=== PATIENT | female | born 2000 | race Caucasian/White ===

== ENCOUNTER 2022-03-10 20:54 | Emergency (ER) | payer OTHER, SELFPAY ==
[2022-03-10 21:06] VITALS: BP 125/69; PULSE 108; RESP 18; TEMP 36.1; O2SAT 99
[2022-03-10 21:22] LABS: Basophils Percent Auto 0.4 % (0.2-1.2); Eosinophils Absolute Auto 0.1 K/mm3 (0-0.3); Eosinophils Percent Auto 1.3 % (0-4.4); Hematocrit 35.3 % (37.0-47.0); Hemoglobin 11.7 g/dL (12.0-15.0); Immature Granulocyte Absolute 0.04 K/mm3 (0.00-0.031); Immature Granulocyte Percent A 0.4 % (0-0.5); Lymphocytes Absolute Auto 1.21 K/mm3 (0.9-3.2); Lymphocytes Percent Auto 13.3 % (18.3-44.2); Mean Corpuscular HGB Conc 33.1 g/dl (32-36); Mean Corpuscular Hemoglobin 27.2 pg (26-34); Mean Corpuscular Volume 82.1 fl (80-100); Mean Platelet Volume 11.7 fl (7.4-10.4); Monocytes Absolute Auto 0.6 K/mm3 (0.1-0.6); Monocytes Percent Auto 6.5 % (2.6-8.5); Neutrophils Absolute Auto 7.1 K/mm3 (1.3-6.7); Neutrophils Percent Auto 78.1 % (45.5-73.1); Platelet Count Result 166 k/mm3 (150-375); Red Cell Distribution Width 14.4 % (11.5-14.5); White Blood Count 9.1 K/mm3 (4.5-10.0)
[2022-03-10 21:32] LABS: Alanine Aminotransferase 15 U/L (6-35); Albumin Level 3.9 g/dL (3.7-5.6); Alkaline Phosphatase 59 U/L (45-116); Anion Gap 8 mmol/L (8-16); Aspartate Amino Transferase 24 U/L (14-36); Bilirubin,Total 0.2 mg/dL (0.2-1.3); Blood Urea Nitrogen 4 mg/dL (8-21); Calcium 8.6 mg/dL (8.9-10.7); Carbon Dioxide 19 mmol/L (22-30); Chloride 105 mmol/L (98-107); Estimated CRCL calculation 180 ml/min; Estimated Glomerular Filt Rate > 60; Glucose 99 mg/dL (65-110); Lipase 63 U/L (23-300); Potassium 3.5 mmol/L (3.4-5.0); Sodium 132 mmol/L (134-143)
[2022-03-10 22:53] LABS: Appearance Urine Clear (Clear); Bilirubin Urine Negative (Negative); Blood Urine Negative (Negative); Color Urine Yellow (Yellow); Glucose Urine UA Negative (Negative); Ketones Urine 1+ mg/dL (Negative); Leukocyte Esterase Ur Negative LEU/UL (Negative); Nitrate Urine Negative (Negative); Protein Urine Negative (Negative); Urobilinogen Urine 0.2 mg/dL (<2.0)
[2022-03-10 22:57] LABS: Add Urine Microscopic? YES; Bacteria Urine Trace /hpf; Mucus Urine Rare /lpf; RBC Urine 0-2 /hpf (0-2); Squamous Epithelial Cell Urine Moderate /hpf (Few); WBC Urine 0-3 /hpf
[2022-03-10 23:23] LABS: Influenza A QL RT-PCR Negative (Negative); Influenza B QL RT-PCR Negative (Negative); SARS-CoV-2 RNA PCR Negative
[2022-03-10] MEDS: SODIUM CHLORIDE 0.9% IV 1,000 ML 999 ML IV CONT (23:28)
--- NOTE | 2022-03-11 00:08 | ED.GENADULT ---
HPI - General Adult General Chief complaint: Nausea/Vomiting/Diarrhea Stated complaint: vomiting while 16 weeks Time Seen by Provider: 03/10/22 22:09 History of Present Illness HPI narrative: Patient is a 21-year-old female who presents ER with multiple issues. She has been having sinus congestion with cough and sore throat. Ongoing over the last couple days. No fevers or chills or sweats. No known sick contacts. She also has been having nausea and vomiting. She is [address] Barker. No vaginal bleeding or vaginal discharge. No urinary frequency urgency or dysuria. Related Data Allergies Allergy/AdvReac Type Severity Reaction Status Date / Time No Known Allergies Allergy Unknown Unverified 06/30/17 18:13 Review of Systems Review of Systems: All systems reviewed & are unremarkable except as noted in HPI and below Constitutional: Constitutional: Denies chills and Denies fever(s) ENT: Reports nasal congestion and Reports sore throat Cardiovascular: Cardiovascular: Denies chest pain and Denies rapid heart rate Respiratory: Respiratory: Reports cough and Denies dyspnea Gastrointestinal: Gastrointestinal: Denies abdominal pain, Reports nausea and Reports vomiting Genitourinary: Genitourinary: Denies abnormal vaginal bleeding, Denies hematuria, Denies nocturia and Denies flank pain PMFSH Past Medical History Medical History (Updated 03/11/22 @ 07:27 by Jb Carrero MD) Healthy female adult Surgical History Surgical History (Updated 03/11/22 @ 07:27 by Jb Carrero MD) No pertinent past surgical history Exam Narrative: GENERAL: Well-appearing, well-nourished, and in no acute distress. HEAD: Normocephalic, atraumatic. EYES: PERRL and EOMI. ENT: Mucous membranes moist. CHEST: Clear to auscultation. No respiratory distress. HEART: Regular rate and rhythm. Normal peripheral pulses. ABDOMEN: Soft, nontender, nondistended. EXTREMITIES: Normal range of motion. No edema. SKIN: Warm, dry, no rash. NEURO: Alert and oriented x3. PSYCH: Normal mood and affect. Course Course Emergency Course: Patient feels improved after fluids and antiemetics. Discharge home with supportive therapy. Vital Signs Vital signs: Vital Signs Temperature 97 F L 03/10/22 21:06 Pulse Rate 108 H 03/10/22 21:06 Respiratory Rate 18 03/10/22 21:06 Blood Pressure 125/69 03/10/22 21:06 Pulse Oximetry 99 03/10/22 21:06 Oxygen Delivery Room Air 03/10/22 21:06 Temperature 97 F L 03/10/22 21:06 Pulse Rate 76 03/11/22 01:07 Respiratory Rate 18 03/11/22 01:07 Blood Pressure 122/76 03/11/22 01:07 Pulse Oximetry 98 03/11/22 01:07 Oxygen Delivery Room Air 03/10/22 21:06 Medical Decision Making Vital Signs Vital Signs: Vital Signs Temperature 97 F L 03/10/22 21:06 Pulse Rate 108 H 03/10/22 21:06 Respiratory Rate 18 03/10/22 21:06 Blood Pressure 125/69 03/10/22 21:06 Pulse Oximetry 99 03/10/22 21:06 Oxygen Delivery Room Air 03/10/22 21:06 Temperature 97 F L 03/10/22 21:06 Pulse Rate 76 03/11/22 01:07 Respiratory Rate 18 03/11/22 01:07 Blood Pressure 122/76 03/11/22 01:07 Pulse Oximetry 98 03/11/22 01:07 Oxygen Delivery Room Air 03/10/22 21:06 Lab Data Result diagrams: 03/10/22 21:14 03/10/22 21:14 Labs: Lab Results 03/10/22 03/10/22 03/10/22 Range/Units 21:14 21:14 22:28 WBC 9.1 (4.5-10.0) K/mm3 RBC 4.30 (4.2-5.4) M/mm3 Hgb 11.7 L (12.0-15.0) g/dL Hct 35.3 L (37.0-47.0) % MCV 82.1 (80-100) fl MCH 27.2 (26-34) pg MCHC 33.1 (32-36) g/dl RDW 14.4 (11.5-14.5) % Plt Count 166 (150-375) k/mm3 MPV 11.7 H (7.4-10.4) fl Immature Gran % (Auto) 0.4 (0-0.5) % Neut % (Auto) 78.1 H (45.5-73.1) % Lymph % (Auto) 13.3 L (18.3-44.2) % [place] % (Auto) 6.5 (2.6-8.5) % Eos % (Auto) 1.3 (0-4.4) % Baso % (A
[2022-03-11 00:51] VITALS: BP 120/82; PULSE 72; RESP 18; O2SAT 98
[2022-03-11 01:07] VITALS: BP 122/76; PULSE 76; RESP 18; O2SAT 98
== END 2022-03-11 01:10 | disposition home or self-care (01) ==
PROVIDERS: Emergency Provider Emergency Medicine; PCP Obstetrics & Gynecology
DX: O98.512 Other viral diseases complicating pregnancy, second trimester (principal); B34.9 Viral infection, unspecified; O21.9 Vomiting of pregnancy, unspecified; Z3A.16 16 weeks gestation of pregnancy; Z20.822 Contact with and (suspected) exposure to COVID-19
CPT/HCPCS: 36415; 80053; 81001; 81025; 83690; 85025; 87502; 96360; 99283; C9803; J7030; U0003; U0005

== ENCOUNTER 2022-07-11 13:14 | Outpatient (CLI) | payer OTHER, SELFPAY ==
[2022-07-11 13:53] VITALS: BP 129/77; PULSE 91
[2022-07-11 14:01] VITALS: BP 127/76; PULSE 89
[2022-07-11 14:12] LABS: Appearance Urine Slightly Cloudy (Clear); Bilirubin Urine Negative (Negative); Blood Urine Negative (Negative); Color Urine Yellow (Yellow); Glucose Urine UA Negative (Negative); Ketones Urine Negative (Negative); Leukocyte Esterase Ur 3+ LEU/UL (NEGATIVE); Nitrate Urine Negative (Negative); Protein Urine Negative (Negative); Specific Grav Ur 1.015 (1.001-1.035); Urobilinogen Urine 0.2 mg/dL (<2.0); pH Urine 7.5 (5.0-9.0)
[2022-07-11 14:15] LABS: Basophils Absolute Auto 0.1 K/mm3 (0.0-0.1); Basophils Percent Auto 0.6 % (0.2-1.2); Eosinophils Absolute Auto 0.1 K/mm3 (0-0.3); Hematocrit 33.3 % (37.0-47.0); Hemoglobin 10.3 g/dL (12.0-15.0); Immature Granulocyte Percent A 2.6 % (0-0.5); Lymphocytes Absolute Auto 1.83 K/mm3 (0.9-3.2); Lymphocytes Percent Auto 15.9 % (18.3-44.2); Mean Corpuscular HGB Conc 30.9 g/dl (32-36); Mean Corpuscular Hemoglobin 24.8 pg (26-34); Mean Platelet Volume 11.5 fl (7.4-10.4); Monocytes Absolute Auto 0.7 K/mm3 (0.1-0.6); Monocytes Percent Auto 5.7 % (2.6-8.5); Neutrophils Absolute Auto 8.5 K/mm3 (1.3-6.7); Neutrophils Percent Auto 74.2 % (45.5-73.1); Nucleated Red Blood Cells Perc 0.3 % (0.0-0.2); Platelet Count Result 197 k/mm3 (150-375); Red Blood Count 4.16 M/mm3 (4.2-5.4); Red Cell Distribution Width 14.9 % (11.5-14.5); White Blood Count 11.5 K/mm3 (4.5-10.0)
[2022-07-11 14:16] VITALS: BP 129/86; PULSE 89
[2022-07-11 14:17] LABS: Bacteria Urine Trace /hpf; RBC Urine 0-2 /hpf (0-2); Squamous Epithelial Cell Urine Many /hpf (Few); WBC Urine 16-20 /hpf (0-3)
[2022-07-11 14:28] LABS: Creatinine Urine 55.1 mg/dL; Total Protein Urine Random 12 mg/dL; Ur Ttl Prot Creatinine Ratio 0.22 mg/mg (0-0.20)
[2022-07-11 14:31] VITALS: BP 129/87; PULSE 90
[2022-07-11 14:43] VITALS: BP 127/77; PULSE 91
[2022-07-11 15:04] LABS: Alanine Aminotransferase 15 U/L (6-35); Albumin Level 3.5 g/dL (3.7-5.6); Alkaline Phosphatase 190 U/L (45-116); Anion Gap 7 mmol/L (8-16); Aspartate Amino Transferase 27 U/L (14-36); Bilirubin,Total 0.5 mg/dL (0.2-1.3); Blood Urea Nitrogen 3 mg/dL (8-21); Carbon Dioxide 19 mmol/L (22-30); Chloride 107 mmol/L (98-107); Estimated Glomerular Filt Rate > 60; Glucose 77 mg/dL (65-110); Potassium 3.9 mmol/L (3.4-5.0); Sodium 133 mmol/L (134-143); Uric Acid 5.3 mg/dL (3.0-5.9)
[2022-07-11 15:07] LABS: Add Urine Microscopic? YES
== END 2022-07-11 15:17 | disposition home or self-care (01) ==
LOC: ANHOBOP 13:21 → ANHOBPP 13:22
PROVIDERS: PCP Obstetrics & Gynecology; Visit Provider Advanced Practice Midwife
DX: O13.9 Gestational [pregnancy-induced] hypertension without significant proteinuria, unspecified trimester (principal); Z3A.00 Weeks of gestation of pregnancy not specified
CPT/HCPCS: 36415; 59025; 80053; 81001; 82570; 84156; 84550; 85025; 87086; 87088; 99199

== ENCOUNTER 2022-08-10 13:26 | Outpatient (CLI) | payer OTHER, SELFPAY ==
[2022-08-10 14:00] VITALS: BP 141/85; PULSE 88
[2022-08-10 14:16] VITALS: BP 139/89; PULSE 93
[2022-08-10 14:30] VITALS: BP 145/94; PULSE 96
[2022-08-10 14:45] VITALS: BP 132/90; PULSE 89
[2022-08-10 15:09] LABS: Basophils Percent Auto 0.3 % (0.2-1.2); Eosinophils Absolute Auto 0.1 K/mm3 (0-0.3); Eosinophils Percent Auto 0.9 % (0-4.4); Hematocrit 30.4 % (37.0-47.0); Hemoglobin 9.1 g/dL (12.0-15.0); Immature Granulocyte Absolute 0.25 K/mm3 (0.00-0.031); Immature Granulocyte Percent A 2.1 % (0-0.5); Lymphocytes Absolute Auto 1.99 K/mm3 (0.9-3.2); Lymphocytes Percent Auto 17.1 % (18.3-44.2); Mean Corpuscular HGB Conc 29.9 g/dl (32-36); Mean Corpuscular Hemoglobin 24.1 pg (26-34); Mean Corpuscular Volume 80.4 fl (80-100); Mean Platelet Volume 11.4 fl (7.4-10.4); Monocytes Absolute Auto 0.6 K/mm3 (0.1-0.6); Neutrophils Absolute Auto 8.7 K/mm3 (1.3-6.7); Neutrophils Percent Auto 74.6 % (45.5-73.1); Nucleated Red Blood Cells Absolute Auto 0.1 K/mm3 (0.0-0.012); Nucleated Red Blood Cells Perc 0.8 % (0.0-0.2); Platelet Count Result 191 k/mm3 (150-375); Red Blood Count 3.78 M/mm3 (4.2-5.4); White Blood Count 11.7 K/mm3 (4.5-10.0)
[2022-08-10 15:15] VITALS: BP 143/92; PULSE 82
[2022-08-10 15:19] LABS: Creatinine Urine 170.6 mg/dL; Total Protein Urine Random 18 mg/dL; Ur Ttl Prot Creatinine Ratio 0.11 mg/mg (0-0.20)
[2022-08-10 15:22] LABS: Alanine Aminotransferase 22 U/L (6-35); Alkaline Phosphatase 200 U/L (45-116); Anion Gap 10 mmol/L (8-16); Aspartate Amino Transferase 30 U/L (14-36); Bilirubin,Total 0.3 mg/dL (0.2-1.3); Blood Urea Nitrogen 9 mg/dL (8-21); Calcium 8.6 mg/dL (8.9-10.7); Carbon Dioxide 20 mmol/L (22-30); Chloride 105 mmol/L (98-107); Estimated Glomerular Filt Rate > 60; Glucose 94 mg/dL (65-110); Potassium 4.3 mmol/L (3.4-5.0); Sodium 135 mmol/L (134-143); Uric Acid 6.4 mg/dL (3.0-5.9)
[2022-08-10 15:26] LABS: Appearance Urine Slightly Cloudy (Clear); Bilirubin Urine 1+ (Negative); Blood Urine Negative (Negative); Color Urine Yellow (Yellow); Glucose Urine UA Negative (Negative); Ketones Urine Trace mg/dL (Negative); Leukocyte Esterase Ur 1+ LEU/UL (NEGATIVE); Nitrate Urine Negative (Negative); Protein Urine 1+ mg/dL (Negative); Specific Grav Ur 1.025 (1.001-1.035); Urobilinogen Urine 0.2 mg/dL (<2.0)
[2022-08-10 15:30] VITALS: BP 138/91; PULSE 78
[2022-08-10 15:32] LABS: Bacteria Urine Trace /hpf; Mucus Urine Rare /lpf; Squamous Epithelial Cell Urine Many /hpf (Few)
[2022-08-10 15:35] LABS: Platelet Estimate Adequate (Adequate)
[2022-08-10 15:36] LABS: Hypochromasia 1+ (NORMAL)
[2022-08-10 15:37] LABS: Anisocytosis 3+ (NORMAL); Schistocytes None Seen (NORMAL)
--- NOTE | 2022-08-10 15:42 | PC.NURSE ---
1433- Spoke with Dr. Holloway, Orders for [facility] labs and watch tracing for longer. 1535- Spoke with Dr. Holloway, labs reviewed, NST reactive, no decels. Orders to discharge to home, patient called and made appt to be seen in office on or Tuesday.
[2022-08-10 15:43] LABS: Add Urine Microscopic? YES
== END 2022-08-10 15:55 | disposition home or self-care (01) ==
LOC: ANHOBOP 13:38 → ANHOBPP 13:40
PROVIDERS: Obstetrics & Gynecology; Visit Provider Obstetrics & Gynecology
DX: O26.851 Spotting complicating pregnancy, first trimester (principal); Z3A.00 Weeks of gestation of pregnancy not specified
CPT/HCPCS: 36415; 59025; 80053; 81001; 82570; 84112; 84156; 84550; 85025; 87086; 87088; 99199

== ENCOUNTER 2022-08-20 09:47 | Inpatient (IN) | payer OTHER, SELFPAY ==
[2022-08-20] VITALS (126 sets, daily range): BP systolic 106–147; BP diastolic 69–110; PULSE 73–176; TEMP 36.6–36.9; O2SAT 99–100; BMI 43.2
[2022-08-20 10:39] LABS: Basophils Absolute Auto 0.1 K/mm3 (0.0-0.1); Basophils Percent Auto 0.6 % (0.2-1.2); Eosinophils Absolute Auto 0.2 K/mm3 (0-0.3); Eosinophils Percent Auto 1.2 % (0-4.4); Hematocrit 31.8 % (37.0-47.0); Hemoglobin 9.6 g/dL (12.0-15.0); Immature Granulocyte Absolute 0.29 K/mm3 (0.00-0.031); Immature Granulocyte Percent A 2.2 % (0-0.5); Lymphocytes Absolute Auto 2.01 K/mm3 (0.9-3.2); Lymphocytes Percent Auto 15.4 % (18.3-44.2); Mean Corpuscular HGB Conc 30.2 g/dl (32-36); Mean Corpuscular Hemoglobin 23.7 pg (26-34); Mean Corpuscular Volume 78.5 fl (80-100); Mean Platelet Volume 12.1 fl (7.4-10.4); Monocytes Absolute Auto 0.7 K/mm3 (0.1-0.6); Monocytes Percent Auto 5.5 % (2.6-8.5); Neutrophils Absolute Auto 9.8 K/mm3 (1.3-6.7); Neutrophils Percent Auto 75.1 % (45.5-73.1); Nucleated Red Blood Cells Absolute Auto 0.1 K/mm3 (0.0-0.012); Nucleated Red Blood Cells Perc 0.6 % (0.0-0.2); Platelet Count Result 232 k/mm3 (150-375); Red Blood Count 4.05 M/mm3 (4.2-5.4); Red Cell Distribution Width 16.6 % (11.5-14.5)
[2022-08-20] MEDS: OXYTOCIN 30 UNITS/NS 500 ML 30 UNITS/500 ML BAG 6 UNITS IV CONT (10:40)
[2022-08-20] MEDS: LACTATED RINGERS 1,000 ML 125 ML IV CONT ×5 (10:40→22:59)
[2022-08-20 10:51] LABS: Alanine Aminotransferase 16 U/L (6-35); Albumin Level 3.5 g/dL (3.7-5.6); Alkaline Phosphatase 227 U/L (45-116); Anion Gap 11 mmol/L (8-16); Aspartate Amino Transferase 26 U/L (14-36); Bilirubin,Total 0.4 mg/dL (0.2-1.3); Blood Urea Nitrogen 14 mg/dL (8-21); Calcium 8.8 mg/dL (8.9-10.7); Carbon Dioxide 21 mmol/L (22-30); Chloride 102 mmol/L (98-107); Estimated Glomerular Filt Rate > 60; Glucose 83 mg/dL (65-110); Sodium 134 mmol/L (134-143)
--- NOTE | 2022-08-20 11:28 | LDADM ---
This patient, Tom Chahal, was admitted to Labor/Delivery/Recovery 102 on 08/20/22 at 09:47. Plans for labor, pain management and were discussed with patient. Patient/family oriented to hospital policies and general routines including ID bracelet, bed and alarms, visiting hours, pain management, procedures, bathroom and other care routines, personal items, smoking policy, room service/diet and guest tray routines, security routines, and visiting hours. Patient/Family are encouraged to report perceived risks to care and to ask questions if they do not understand what they are told or what they should do. See OBIX for further documentation.
[2022-08-20 17:06] LABS: Rapid Plasma Reagin Non-Reactive (NonReactive)
--- NOTE | 2022-08-20 19:03 | WPDANESEPP ---
Anes - Eval Pre Procedure Procedure: labor epidual Date/Time: 08/20/22 19:03 Surgeon: barry Preop Diagnosis: pain during labor Pre Op Diagnosis: Induction of Labor Patient Data Age: 21 Gender: F Height: 1.65 m Weight: 118 kg Last Vital Signs Temp 36.9 C 08/20/22 18:17 Pulse 83 08/20/22 19:00 BP 132/95 H 08/20/22 19:00 Pulse Ox 100 08/20/22 19:02 O2 Del Method Room Air 08/20/22 11:25 Allergies Allergy/AdvReac Type Severity Reaction Status Date / Time No Known Allergies Allergy Unknown Verified 08/20/22 11:40 Home Medications Medication Instructions Recorded Confirmed Type mv-mn no.97-folic 180 mcg-dha 25 1 tablet PO DAILY 08/20/22 08/20/22 History mg-herb no.293 25 mg chewable tablet (Alive Daily Support ) Laboratory Tests 08/20/22 08/20/22 08/20/22 10:13 10:13 10:13 WBC 13.0 K/mm3 H K/mm3 (4.5-10.0) RBC 4.05 M/mm3 L M/mm3 (4.2-5.4) Hgb 9.6 g/dL L g/dL (12.0-15.0) Hct 31.8 % L % (37.0-47.0) MCV 78.5 fl L fl (80-100) MCH 23.7 pg L pg (26-34) MCHC 30.2 g/dl L g/dl (32-36) RDW 16.6 % H % (11.5-14.5) Plt Count 232 k/mm3 k/mm3 (150-375) MPV 12.1 fl H fl (7.4-10.4) Immature Gran % (Auto) 2.2 % H % (0-0.5) Neut % (Auto) 75.1 % H % (45.5-73.1) Lymph % (Auto) 15.4 % L % (18.3-44.2) [place] % (Auto) 5.5 % % (2.6-8.5) Eos % (Auto) 1.2 % % (0-4.4) Baso % (Auto) 0.6 % % (0.2-1.2) Lymph # (Auto) 2.01 K/mm3 K/mm3 (0.9-3.2) [place] # (Auto) 0.7 K/mm3 H K/mm3 (0.1-0.6) Eos # (Auto) 0.2 K/mm3 K/mm3 (0-0.3) Baso # (Auto) 0.1 K/mm3 K/mm3 (0.0-0.1) Abs Immat Gran (auto) 0.29 K/mm3 H K/mm3 (0.00-0.031) Absolute Neuts (auto) 9.8 K/mm3 H K/mm3 (1.3-6.7) Absolute Nucleated RBC 0.1 K/mm3 H K/mm3 (0.0-0.012) Nucleated RBC % 0.6 % H % (0.0-0.2) Sodium Potassium Chloride Carbon Dioxide Anion Gap BUN Creatinine Estim Creat Clear Calc Estimated GFR Glucose Calcium Total Bilirubin AST ALT Alkaline Phosphatase Total Protein Albumin RPR Non-reactive (NonReactive) Blood Type A Positive Antibody Screen Negative 08/20/22 10:13 WBC RBC Hgb Hct MCV MCH MCHC RDW Plt Count MPV Immature Gran % (Auto) Neut % (Auto) Lymph % (Auto) [place] % (Auto) Eos % (Auto) Baso % (Auto) Lymph # (Auto) [place] # (Auto) Eos # (Auto) Baso # (Auto) Abs Immat Gran (auto) Absolute Neuts (auto) Absolute Nucleated RBC Nucleated RBC % Sodium 134 mmol/L mmol/L (134-143) Potassium 4.0 mmol/L mmol/L (3.4-5.0) Chloride 102 mmol/L mmol/L (98-107) Carbon Dioxide 21 mmol/L L mmol/L (22-30) Anion Gap 11 mmol/L mmol/L (8-16) BUN 14 mg/dL D mg/dL (8-21) Creatinine 0.80 mg/dL mg/dL (0.7-1.0) Estim Creat Clear Calc Not Reportable Estimated GFR > 60 (59 - ) Glucose 83 mg/dL mg/dL (65-110) Calcium 8.8 mg/dL L mg/dL (8.9-10.7) Total Bilirubin 0.4 mg/dL mg/dL (0.2-1.3) AST 26 U/L U/L (14-36) ALT 16 U/L U/L (6-35) Alkaline Phosphatase 227 U/L H U/L (45-116) Total Protein 7.0 g/dL g/dL (6.3-8.6) Albumin 3.5 g/dL L g/dL (3.7-5.6) RPR Blood Type Antibody Screen Patient hx anesthesia problems: none Family hx anesthesia problems: none Results Review: All pre-operative results and documents have been reviewed as part of the pre-operative ev
[2022-08-21] VITALS (261 sets, daily range): BP systolic 75–220; BP diastolic 35–190; PULSE 61–222; RESP 16–18; TEMP 36.6–37; O2SAT 80–100
--- NOTE | 2022-08-21 08:30 | PM.IMHP ---
H&P: HPI History of Present Illness Date/Time: 08/21/22 08:30 Chief Complaint: preeclampsia Narrative: This patient is 21-year-old 1 at 39 & 6/7 weeks gestation who presented for induction of labor for preeclampsia. Pitocin was started external monitoring was initiated. Around 2040 on 08/20/2022 after epidural a prolonged heart rate deceleration was observed. Resuscitative measures were initiated and a normal heart rate tracing was achieved. Internal monitors were placed at that time. Scalp electrode and intrauterine pressure catheter. She was 3-4 cm dilated at that time. expectant management was continued through the night. Again an epidural had to be replaced and with Anesthetic bolus a prolonged heart rate deceleration was observed. with observation the heart rate tracing became normal and reactive. the heart rate tracing is reactive and very reassuring at this time. She denies any nausea, vomiting, fever, chills. She denies chest pain or shortness of breath. Review of Systems Review of Systems: All systems reviewed & are unremarkable except as noted in HPI and below Constitutional: Constitutional: Denies chills, Denies fatigue, Denies fever(s) and Denies weakness Eyes: Eyes: Denies blurry vision, Denies change in vision, Denies loss of peripheral vision, Denies loss of vision, Denies other visual disturbances and Denies eye pain ENT: Denies vertigo, Denies dizziness, Denies hearing loss, Denies mouth pain, Denies nasal obstruction, Denies neck mass and Denies neck pain Cardiovascular: Cardiovascular: Denies chest pain, Denies diaphoresis, Denies syncope, Denies leg edema and Denies dyspnea Respiratory: Respiratory: Denies chest congestion, Denies cough, Denies hemoptysis, Denies dyspnea and Denies wheezing Gastrointestinal: Gastrointestinal: Denies abdominal pain, Denies constipation, Denies diarrhea, Denies nausea and Denies vomiting Genitourinary: Genitourinary: Denies hematuria, Denies change in libido, Denies nocturia, Denies genital lesions, Denies flank pain and Denies urinary urgency Musculoskeletal: Musculoskeletal: Denies abnormal gait, Denies back pain, Denies myalgias, Denies arthralgias, Denies joint swelling, Denies muscle weakness and Denies neck pain Integumentary/Breasts: Skin/Breast: Denies swelling, Denies breast pain, Denies breast mass, Denies dry skin, Denies nipple discharge, Denies unusual bruising and Denies jaundice Neurologic: Denies Neuro-related abnormal movements, Denies Abnormal speech present, Denies abnormal gait, Denies behavioral changes, Denies confusion, Denies vertigo, Denies dizziness, Denies syncope, Denies loss of vision, Denies memory loss, Denies convulsions and Denies weakness Psychiatric: Psychiatric: Denies abnormal sleep pattern, Denies behavioral changes, Denies change in libido, Denies confusion, Denies depression, Denies anhedonia and Denies memory loss Endocrine: Endocrine: Reports no additional endocrine complaints, Denies change in libido and Denies fatigue Hematologic/Lymphatic: Hematologic/Lymphatic: Reports no additional hematologic/lymphatic complaints Allergic/Immunologic: Allergic/Immunologic: Reports no additional allergic/immunologic complaints and Denies wheezing PMFSH Past Medical History Medical History (Updated 08/21/22 @ 08:40 by Cruzito Barker MD) Healthy female adult IUP (intrauterine ), incidental Obesity Surgical History Surgical History (Updated 03/11/22 @ 07:27 by Jb Carrero MD) No pertinent past surgical history Social History Social History Smoking status: Former smoker Tobacco type: cigarettes and e-cigarettes/vaping Second hand tobacco smoke exposure: Yes Smoking end date: 02/07/22 Substance use: never Lack of Transportation: No Lack of Food: Never True Current Housing: I Have Housing Concerned About Future Housing: No Difficulty Paying Gas/Electric Bills: No Difficult
[2022-08-21] MEDS: ONDANSETRON INJ 4 MG/2 ML VIAL IV PUSH (10:38)
[2022-08-21] MEDS: ePHEDrine sulfate INJ 50 MG/ML AMPUL IV PUSH (12:03)
[2022-08-21] MEDS: IBUPROFEN 600 MG TABLET PO (15:36)
[2022-08-21] MEDS: BENZOCAINE 20% AER SPR (*SP) 56 GM CAN 1 SPRAY TOPICAL (15:37)
[2022-08-21] MEDS: WITCH HAZEL 40 PADS 1 PAD TOPICAL (15:37)
[2022-08-21] MEDS: DOCUSATE SODIUM 100 MG CAPSULE PO (17:34)
[2022-08-21] MEDS: POLYSACCHARIDE IRON COMPLEX 150 MG CAPSULE PO (17:34)
[2022-08-22 00:15] VITALS: BP 122/82; PULSE 92; RESP 18; TEMP 36.7; O2SAT 100
[2022-08-22 04:00] VITALS: BP 128/82; PULSE 102; RESP 18; TEMP 37.2; O2SAT 99
[2022-08-22 05:45] LABS: Hematocrit 24.6 % (37.0-47.0); Hemoglobin 7.3 g/dL (12.0-15.0)
[2022-08-22] MEDS: POLYSACCHARIDE IRON COMPLEX 150 MG CAPSULE PO ×2 (08:39→16:47)
[2022-08-22] MEDS: DOCUSATE SODIUM 100 MG CAPSULE PO ×2 (08:39→16:47)
[2022-08-22 08:40] VITALS: BP 136/89; PULSE 105; RESP 16; TEMP 36.7; O2SAT 99
--- NOTE | 2022-08-22 10:08 | PM.OBPRVD ---
OB - Delivery Note Procedure Procedure: Events: Preeclampsia w/o severe features Intrapartal Events: Non-Reassuring Status Induction method: AROM and Per Pitocin Protocol Delivery monitor: Internal FHT and Internal Uterine Route of delivery: Laceration Description: Vaginal Delivery repair: vicryl Quantitative Blood Loss (ml): 400 Complications: none Baby Date of : 08/21/22 Time of : 13:22 Weeks of gestation at delivery: 39 gender: Male presentation: vertex Placenta delivery description: Spontaneous score one minute: 8 score five minutes: 9
--- NOTE | 2022-08-22 10:19 | PM.OBPNVD ---
OB - PN: Subj Subjective Date/time seen: 08/22/22 10:19 Patient comments: no complaints, pain well controlled, incisional pain, tolerating diet and flatus present OB - PN: Obj Data Labs CBC & Chem 7: 08/22/22 04:20 08/20/22 10:13 Labs: Laboratory Results - last 24 hr 08/22/22 04:20 Hgb 7.3 L Hct 24.6 L OB - PN A/P Plan day: 1 Plan: routine care Comments: No problems, routine care Time Spent With Patient Time: Total time spent is greater than 50% in coordination of care (as documented) at patient's floor/unit and/or counseling patient: Exam Const: General: comfortable, no acute distress and alert Resp: Effort & Inspection: normal respiratory effort Auscultation: no crackles, no rales and no rhonchi Cardio: Rate: regular rate Heart sounds: no click, no murmurs and no rubs GI: Inspection: non-distended GI Palp: No Tenderness to palpation present (GI) Auscultation: normal bowel sounds Other: Incision - CDI Extrem: General: normal to inspection, no pedal edema and no calf tenderness
[2022-08-22 12:30] VITALS: BP 131/83; PULSE 104; RESP 16; TEMP 37.4; O2SAT 100
--- NOTE | 2022-08-22 14:31 | WPDANLDPN2 ---
Anes-Prog Note L&D Date/Time: 08/22/22 14:31 Comfortable throughout: labor and delivery Neuraxial method: epidural Epidural/Spinal procedure site: clean & non-tender Neuro status: Neuro function grossly intact. Cardiovascular status: normal Respiratory status: normal Airway patency: baseline Mental status: baseline Post-Op hydration status: normal Vital Signs: Last Vital Signs Temp 99.3 F 08/22/22 12:30 Pulse 104 H 08/22/22 12:30 Resp 16 08/22/22 12:30 BP 131/83 08/22/22 12:30 Pulse Ox 100 08/22/22 12:30 O2 Del Method Room Air 08/22/22 12:30 Pain score (VAS): 0/10 I/O: Intake & Output 08/21/22 08/22/22 08/22/22 23:59 07:59 15:59 Intake Total 084 226 7455 Output Total 400 1650 Balance 240 325 -390 Post-procedural complaints: none Patient feedback: Patient satisfied with anesthetic care.
[2022-08-22] MEDS: IBUPROFEN 600 MG TABLET PO (16:49)
[2022-08-22 16:50] VITALS: BP 139/95
[2022-08-22 20:35] VITALS: BP 122/73; PULSE 115; RESP 16; TEMP 36.8; O2SAT 100
[2022-08-23 00:10] VITALS: BP 131/82; PULSE 96; RESP 16; TEMP 37.2; O2SAT 100
[2022-08-23 04:15] VITALS: BP 134/89; PULSE 99; RESP 16; TEMP 37.5; O2SAT 100
[2022-08-23 07:25] VITALS: BP 126/81; PULSE 95; RESP 16; TEMP 37.2; O2SAT 100
[2022-08-23 08:00] VITALS: PULSE 95; RESP 16; O2SAT 100
--- NOTE | 2022-08-23 08:09 | PM.OBPNVD ---
OB - PN: Subj Subjective Date/time seen: 08/23/22 08:09 Patient comments: no complaints, pain well controlled and tolerating diet OB - PN: Obj Data Labs CBC & Chem 7: 08/22/22 04:20 08/20/22 10:13 OB - PN A/P Plan day: 2 Plan: routine care and discharge home Time Spent With Patient Time: Total time spent is greater than 50% in coordination of care (as documented) at patient's floor/unit and/or counseling patient: Exam Const: General: comfortable and no acute distress Resp: Effort & Inspection: normal respiratory effort Auscultation: no rales, no rhonchi and no wheezes Cardio: Rate: regular rate Heart sounds: no click, no murmurs and no rubs GI: GI Palp: Yes Soft to palpation and No Tenderness to palpation present (GI) Auscultation: normal bowel sounds Extrem: General: normal to inspection, no pedal edema and no calf tenderness
--- NOTE | 2022-08-23 08:10 | PM.OBDSVD ---
DS: Admitting Diagnosis Discharge Date 08/23/22 Admitting Diagnosis term . preeclampsia OB - DS: Summary OB Procedures : None OB Procedures Intrapartum: Spontaneous Vag Delivery OB Procedures: : None Time Spent with Patient Time attestation: Total time spent providing and/or coordinating discharge services: Discharge Plan Discharge Discharging Clinician: Cruzito Barker Patient Disposition: Home, Self-Care Activity: pelvic rest Diet: regular Patient Instructions: Antibiotic Form Stand Alone Forms: General Discharge Information Follow-up/Referrals: Cruzito Barker MD [Physician] - Discharge Medications: Continued Alive Daily Support 180 mcg-25 mg- 25 mg Tablet,Chewable 1 tablet PO DAILY Date of admission: 08/20/22 09:47 Primary Care Provider: UNKNOWN,DOCTOR Admitting Provider: Jojo Holloway Attending physician on admission: Jojo Holloway Condition: Stable
--- NOTE | 2022-08-23 10:25 | PC.NURSE ---
Patient viewed the discharge video Mother & Baby Care, The First Two Weeks . Patient was given the opportunity and encouraged to ask questions. Patient verbalized understanding of information shared and has been given the mother/baby guide for home reference.
[2022-08-23] MEDS: POLYSACCHARIDE IRON COMPLEX 150 MG CAPSULE PO (10:26)
[2022-08-23] MEDS: DOCUSATE SODIUM 100 MG CAPSULE PO (10:26)
[2022-08-24 10:58] VITALS: BP 141/94; PULSE 97; RESP 20; TEMP 37.1; O2SAT 100
== END 2022-08-23 12:46 | disposition home or self-care (01) | DRG 807 ==
LOC: ANHOB2 08-23 10:41 → ANHLDR 08-24 11:57 → ANHOB2 08-24 11:57
PROVIDERS: Admitting Provider Obstetrics & Gynecology; Visit Provider Obstetrics & Gynecology
DX: O14.04 Mild to moderate pre-eclampsia, complicating childbirth (principal); Z37.0 Single live birth; O76 Abnormality in fetal heart rate and rhythm complicating labor and delivery; O69.81X0 Labor and delivery complicated by cord around neck, without compression, not applicable or unspecified; O70.1 Second degree perineal laceration during delivery; Z3A.39 39 weeks gestation of pregnancy
CPT/HCPCS: 36415; 80053; 85014; 85018; 85025; 86592; 86850; 86900; 86901; A9270; J2405; J2590; J2795; J7120

== ENCOUNTER 2022-12-21 10:04 | Emergency (ER) | payer OTHER, SELFPAY ==
[2022-12-21 10:17] VITALS: BP 125/76; PULSE 85; RESP 18; TEMP 36.2; O2SAT 100
--- NOTE | 2022-12-27 17:25 | ED.URI ---
HPI - URI/Sore Throat General Chief Complaint: Upper Respiratory Infection Stated Complaint: sorethroat Time Seen by Provider: 12/21/22 10:30 Source: patient Mode of arrival: ambulatory Limitations: no limitations History of Present Illness HPI Narrative: 22 yo F presents with c/o sore throat, headaches, bodyaches, chills, fatigue for 3 days. Temp as high at 102F. Denies N/V/D. All systems reviewed and negative except as noted above. Related Data Home Medications Medication Instructions Recorded Confirmed escitalopram oxalate 20 mg tablet 20 mg PO DAILY 12/21/22 12/21/22 Allergies Allergy/AdvReac Type Severity Reaction Status Date / Time No Known Allergies Allergy Unknown Verified 12/21/22 10:08 Review of Systems Review of Systems: CONSTITUTIONAL: Reports fever, chills, or sweats. EYES: Denies visual changes, redness, or discharge. ENT: Denies rhinorrhea, congestion. Reports sore throat. Denies otalgia. CARDIOVASCULAR: Denies chest pain, palpitations, or edema. RESPIRATORY: Denies cough or dyspnea. GASTROINTESTINAL: Denies abdominal pain, nausea, vomiting, or diarrhea. GENITOURINARY: Denies dysuria or hematuria. SKIN: Denies rash or itching. MUSCULOSKELETAL: Denies back pain, joint pain, or myalgia. NEUROLOGIC: Denies headache, numbness, or weakness. PSYCHIATRIC: Denies anxiety or depression. All other systems reviewed are negative, except as documented in HPI. [facility] Past Medical History Medical History (Updated 12/22/22 @ 00:01 by James Rondon) Healthy female adult IUP (intrauterine ), incidental Obesity Surgical History Surgical History (Updated 03/11/22 @ 07:27 by Jb Carrero MD) No pertinent past surgical history Social History Social History Smoking status: Former smoker Tobacco type: cigarettes and e-cigarettes/vaping Second hand tobacco smoke exposure: Yes Smoking end date: 02/07/22 Substance use: never Lack of Transportation: No Lack of Food: Never True Current Housing: I Have Housing Concerned About Future Housing: No Difficulty Paying Gas/Electric Bills: No Difficulty Paying for Meds: No Currently Unemployed: No Education: High School Diploma/GED Difficulty w/ Childcare or Family Care: No Spiritual care concerns: No Comments At time of signature, agree with nursing past medical, surgical, social and family history. There is no relevant family history pertinent to the presenting complaint. Exam Narrative: GENERAL: This is a well-nourished, well-developed patient, ill-appearing but no distress. HEAD: normocephalic, atraumatic. EYES: PERRL. Sclera clear/white. Vision is grossly intact. EARS: External ears normal, auditory canals clear and without drainage, TMs normal without perforation. Hearing grossly intact. NOSE: External nose normal with no obvious nasal discharge, nares without redness, no rhinorrhea. THROAT: Mucous membranes moist, erythematous, swollen. No exudates. NECK: Neck supple, non-tender without lymphadenopathy, masses or thyromegaly. CARDIOVASCULAR: Regular rate and rhythm without murmurs, gallops, or rubs. RESPIRATORY: Clear to auscultation. Breath sounds equal bilaterally. No wheezes, rales, or rhonchi. SKIN: warm, Dry, intact with no suspicious lesions or rash, good texture and turgor. NEURO: awake, alert, and oriented to person, place and time. There were no obvious focal neurologic abnormalities. EXTREMITIES: No joint tenderness, effusion, or edema noted. Course Course Level of Care: Express Care Visit Vital Signs Vital signs: Vital Signs Temperature 36.2 C L 12/21/22 10:17 Pulse Rate 85 12/21/22 10:17 Respiratory Rate 18 12/21/22 10:17 Blood Pressure 125/76 12/21/22 10:17 Pulse Oximetry 100 12/21/22 10:17 Oxygen Delivery Room Air 12/21/22 10:17 Temperature 36.2 C L 12/21/22 10:17 Pulse Rate 85 12/21/22 10:17 Respiratory Rate 18 12/21/22 10:17 Blood Pressure 12
== END 2022-12-21 10:40 | disposition home or self-care (01) ==
PROVIDERS: Emergency Provider Nurse Practitioner Family
DX: J02.0 Streptococcal pharyngitis (principal); E66.9 Obesity, unspecified; Z68.34 Body mass index [BMI] 34.0-34.9, adult
CPT/HCPCS: 87880; 99213; G0463

== ENCOUNTER 2024-03-03 09:13 | Emergency (ER) | payer OTHER, SELFPAY ==
[2024-03-03 09:21] VITALS: BP 131/81; PULSE 107; RESP 18; TEMP 37; O2SAT 99
[2024-03-03 09:23] VITALS: BP 131/81; PULSE 107; RESP 18; TEMP 37; O2SAT 99
--- NOTE | 2024-03-03 09:34 | ED.URI ---
HPI - URI/Sore Throat General Chief Complaint: Upper Respiratory Infection Stated Complaint: Sore Throat, Chills, Fever Time Seen by Provider: 03/03/24 09:28 Source: patient and RN notes reviewed Mode of arrival: ambulatory Limitations: no limitations History of Present Illness HPI Narrative: Patient presents today with a 2 day history of sore throat, chills, subjective fever. Denies congestion, cough, rhinorrhea. Currently rates her pain 8/10 has been taking Tylenol with mild relief. Sister with strep throat a few weeks ago. Related Data Home Medications Medication Instructions Recorded Confirmed Unknown Control Implant 03/03/24 Allergies Allergy/AdvReac Type Severity Reaction Status Date / Time No Known Allergies Allergy Unknown Verified 03/03/24 09:22 Review of Systems Review of Systems: CONSTITUTIONAL: Denies body aches, or sweats.+ subjective fever, chills EYES: Denies visual changes, redness, or discharge. ENT: Denies rhinorrhea, congestion, or otalgia.+ sore throat CARDIOVASCULAR: Denies chest pain, palpitations, or edema. RESPIRATORY: Denies cough or dyspnea. GASTROINTESTINAL: Denies abdominal pain, nausea, vomiting, or diarrhea. GENITOURINARY: Denies dysuria or hematuria. SKIN: Denies rash, itching, or wounds. MUSCULOSKELETAL: Denies back pain, joint pain, or myalgia. NEUROLOGIC: Denies headache, numbness, tingling, or weakness. PSYCH: Denies depression or anxiety. [facility] Past Medical History Medical History Healthy female adult IUP (intrauterine ), incidental Obesity Surgical History Surgical History No pertinent past surgical history Social History Social History Smoking status: Former smoker Tobacco type: cigarettes and e-cigarettes/vaping Second hand tobacco smoke exposure: Yes Smoking end date: 02/07/22 Substance use: never Lack of Transportation: No Lack of Food: Never True Current Housing: I Have Housing Concerned About Future Housing: No Difficulty Paying Gas/Electric Bills: No Difficulty Paying for Meds: No Currently Unemployed: No Education: High School Diploma/GED Difficulty w/ Childcare or Family Care: No Spiritual care concerns: No Comments At time of signature, I have reviewed and agree with nursing past medical, surgical, social and family history unless otherwise noted. Please see nursing chart for further information. There is no relevant family history pertinent to the presenting complaint Exam Narrative: GENERAL: Well-appearing, well-nourished, and in no acute distress. HEAD: Normocephalic, atraumatic. EYES: EOMI. No redness or drainage. Conjunctivae normal. ENT: Mucous membranes pink and moist. Nares clear. No rhinorrhea. TMs normal bilaterally. Throat erythematous. Tonsils 3+ exudate. Uvula midline. NECK: Normal AROM. Supple. No lymphadenopathy. CHEST: No respiratory distress. Clear to auscultation. HEART: Regular rate and rhythm. No murmur appreciated. EXTREMITIES: Normal range of motion. No edema. SKIN: Warm, dry, no rash. Capillary refill normal. Normal skin turgor. NEURO: No focal deficits. Alert and oriented x3. Gait steady. PSYCH: Normal affect. No signs of depression or anxiety. Course Course Level of Care: Express Care Visit Vital Signs Vital signs: Vital Signs Temperature 98.6 F 03/03/24 09:21 Pulse Rate 107 H 03/03/24 09:21 Respiratory Rate 18 03/03/24 09:21 Blood Pressure 131/81 03/03/24 09:21 Pulse Oximetry 99 03/03/24 09:21 Oxygen Delivery Room Air 03/03/24 09:21 Temperature 98.6 F 03/03/24 09:23 Pulse Rate 107 H 03/03/24 09:23 Respiratory Rate 18 03/03/24 09:23 Blood Pressure 131/81 03/03/24 09:23 Pulse Oximetry 99 03/03/24 09:23 Oxygen Delivery Room Air
== END 2024-03-03 09:48 | disposition home or self-care (01) ==
PROVIDERS: Emergency Provider Nurse Practitioner
DX: J02.9 Acute pharyngitis, unspecified (principal); E66.9 Obesity, unspecified; Z68.38 Body mass index [BMI] 38.0-38.9, adult; Z87.891 Personal history of nicotine dependence
CPT/HCPCS: 87081; 87880; 99213; G0463

== ENCOUNTER 2025-05-22 15:42 | Emergency (ER) | payer OTHER, SELFPAY ==
--- NOTE | ~2025-05-22 | XR_ITS ---
EXAM: XR wrist LT min 3V DATE: 05/22/2025 16:03 HISTORY: fall 1 week ago medial pain . COMPARISON: None available. FINDINGS: Normal mineralization. Ulnar negative variance. No fracture or dislocation. No lytic or bl astic lesion. Joint spaces are maintained. No erosion or periosteal change. Soft tissues within evangelina l limits. IMPRESSION: No acute osseous finding in the left wrist. Reviewed, dictated and finalized at location K.
--- OUTSIDE RECORDS SUMMARY | 2025-05-22 15:45 | XMS_ITS | Clinical Summary ---
Author Organization [facility] Address [address] [place] [address] Care Team Providers Care Director Internal Control Name Role Phone Rayna Monsivais MD Unavailable [phone] Letty Small MD Primary Care Provider [phone] Source Comments [facility],non-owned Affiliates and Associated Physician Practices is amultiple site organization consisting of ambulatory clinics and hospital sitesin [place], [place], [place] and [place]. This disclosure is being madepursuant to the Care Everywhere program and may not contain all information available regarding this patient. Last updated 18.[facility] Parchment Allergies No known active allergies Medications * Be aware that medications may not be up to date on this document. Alwaysverify current medications with the patient. albuterol HFA (PROVENTIL;ERIKA FLORIAN;PROAIR) 108 (90 BASE) MCG/ACT inhaler Inhale 2 puffs by mouth every 4 hours as needed Active Vit-DSS-Fe Fum-FA ( vitamin with iron) tablet Take 1 (one) tablet by mouth once daily Active Active Problems Problem Noted Date Diagnosed Date Normal intrauterine , antepartum 2021 Uterine contractions during 08/01/2022 Indication for care or intervention in labor or delivery 08/01/2022 37 weeks gestation of 08/01/2022 Moderate persistent asthma without complication 09/21/2017 Assessment & Plan (04/19/2018 11:59 AM CDT): She is currently doing well with no significant respiratory symptoms. We discussed the overall importance of regular dosing however with her good control right now we did discuss that she may be someone who can get by with seasonal therapy. However, I did suggest that she start upper controller therapy the week before resuming school and for the 1st several weeks to make sure she makes the transition well. They want to do a trial off again after that transition. If she has any increases symptoms would go back to regular controller therapy. I discussed with mom and Tom that if she needs albuterol more than 2x a week or for a few days more than 2 x a month we should resume controller therapy. We discussed the role of controller meds and the action of quick relief medications. 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 On good dose of QVAR. Spirometry inconsistent but exam clear. No ED visits, no hospital stays, and no oral steroids used in the past. Rec: Will change to Aerochamber as spacing device to see if delivery can be improved Continue QVAR 80 2 puffs bid Add Singulair 10 mg daily Albuterol prn Reviewed Aerochamber technique, provided device Reviewed inhaler technique Influenza vaccine has been administered in Dr. Green's office F/U 6 months Family History Medical History Relation Name Comments Asthma Father Asthma Paternal Grandmother Allergic Rhinitis Sister Eczema Sister Cystic Fibrosis Neg Hx Relation Name Status Comments Father Paternal Grandmother Sister Social History Tobacco Use Types Packs/Day Years Used Date Smoking Tobacco: Never Passive Smoke Exposure: Yes Smokeless Tobacco: Never Tobacco Cessation:Counseling Given: Not Answered Alcohol Use Standard Drinks/Week Comments Not Currently 0 (1 standard drink = 0.6 oz pur e alcohol) Overall Financial Resource Strain (CARDI) Answe r Date Recorded How hard is it for you to pa y for the very basics like food, housing, medical care, and heating? Not hard at all 08/03/2022 Hunger Vital Sign Answer Date Recorded Within the past 12 months, y ou worried that your food would run out before you got the money to buy more. Never true 08/03/20 22 Within the past 12 months, t he food you bought just didn't last and you didn't have money to get more. Never true 08/03/2022 PRAPARE - Transportation Answer Date Re corded In the past 12 months, has l ack of transportation kept you from medical appointments or from getting medications? No 07/11 In the past 12 months, has l ack of transportation kept you from meetings, work, or from getting things needed for daily living? No 08/03/2022 Housing Stability Vital Sign Answer Richard e Recorded In the last 12 months, was t here a time when you were not able to pay the mortgage or rent on time? No 08/03/2022 Number of Places Lived in the Last Year Not on f ile 08/03/2022 In the last 12 months, was t here a time when you did not have a steady place to sleep or slept in a prison (including now)? No 08/03/2022 Comments No Sex and Gender Information Value Date Recorded Sex Assigned at Not on file Legal Sex Female 12:03 PM PROPELLANT CHARGE ZONE ASSEMBLER Gender Identity Not on file Sexual Orientation Not on file Last Filed Vital Signs Vital Sign Reading Time Taken Comments Blood Pressure 127/90 08/04/2022 8:36 AM CDT Pulse 96 08/03/2022 11:33 PM CDT Temperature 36.4 C (97.6 F) 08/04/2022 8:36 AM CDT Respiratory Rate 16 08/04/2022 8:36 AM CDT Oxygen Saturation 99% 08/04/2022 8:35 AM CDT Inhaled Oxygen Concentration - - Weight 117.9 kg (260 lb) 08/03/2022 5:58 PM CDT Height 160 cm (5' 3) 08/03/2022 5:58 PM CDT Body Mass Index 46.06 08/03/2022 5:58 PM CDT Plan of Treatment Health Maintenance Due Date Last Done Comments HIV SCREENING 2017 HPV VACCINE (1 - 3-dose series) 2017 CHLAMYDIA/GONORRHEA SCREENING 2018 MENINGOCOCCAL (Group B) VACC INE SHARED DECISION-MAKING (1 of 2 - Standard) 2018 HEPATITIS C SCREENING 10/08/2020 DTAP/TDAP/TD VACCINES (1 - Tdap) 2021 HEPATITIS B VACCINE (1 of 3 - 19+ 3-dose series) 2021 PNEUMOCOCCAL VACCINE (1 of 2 - PCV) 2021 PAP SMEAR 2023 COVID-19 VACCINE (1 - 2023-2 5 season) 2024 DEPRESSION SCREENING 10/10/2024 INFLUENZA VACCINE (#1) 2025 ZOSTER VACCINE (1 of 2) 2052 HIB VACCINE Aged Out No longer eligi ble based on patient's age to complete this topic MENINGOCOCCAL GROUPS A/C/Y/W VACCINE Aged Out No longer eligible b ased on patient's age to complete this topic Insurance [facility] Member Subscriber Plan / Payer (Ef fective 2020-Present) Name:Tom Chahal Member ID:Not on file Relation to Subscriber:Child Name:STEPHANY ROSALES Date of :1988 (Home) Address: [address] [place] [address] Payer ID:[id number] (NAIC) Type:O Address: [place] [phone] [facility] Advance Directives * Full Code (Latest Code Status on File) Date Activated Date Inactivated Comments 08/03/2022 5:50 PM 08/04/2022 1:35 PM Care Teams Director Internal Control Relationship Specialty Start Date End Date Letty Small MD [address] [place] [address] PCP - General Obstetrics and Gynecology 08/01/22 Rayna Monsivais MD [address] [place] [address] Pediatrics 07/10/20
--- OUTSIDE RECORDS SUMMARY | 2025-05-22 15:45 | XMS_ITS | Clinical Summary ---
Author Organization [facility] Address [address] [place] [address] Care Team Providers Care Intranet Developer Name Role Phone Sandy Davis MD Primary Care Provider [phone] Allergies No known active allergies Medications escitalopram (LEXAPRO) 20 MG tablet Take 1 tablet by mouth daily. 09/20/2022 Active Active Problems Problem Noted Date Diagnosed Date Moderate persistent asthma without complication ([facility]) 09/21/2017 Overview (11/16/2022): Last Assessment & Plan: She is currently doing well with no [...] and the action of quick relief medications. Immunizations Immunization Administration Dates Next Due Dtap 04/25/2007, 4,04/24/2003,02/11/2003 ,2002 HPV GARDASIL 9-VALENT 08/22/2017,05/25/2017 HPV4 (Gardasil) 06/26/2014 Hepatitis A (Generic) 11/28/2017,05/25/2017 Hepatitis B Pediatric 07/23/2003,2002,01/2003 Hib 10/16/2003,04/24/2003,02/11/2003 ,2002 Influenza (Generic) 09/26/2006 Influenza Adult (Generic) 07/11/2018,08/22/2017, 10/28/2012 MMR 06/26/2014,04/25/2007,10/16/2003 Menactra 10/17/2015 Meningococcal Vac A,C,Y,W-135 Sc 10/17/2015 Pneumococcal (Prevnar 7) 10/16/2003,04/24/2003,0 02/11/2003,2002 Polio Ipv (Generic) 04/25/2007,01/27/2004,2002,2002 Tdap (Generic) 06/26/2014 Varicella Vaccine 06/26/2014,01/27/2004 Social History Tobacco Use Types Packs/Day Years Used Date Smoking Tobacco: Never Passive Smoke Exposure: Never Smokeless Tobacco: Never Tobacco Cessation:Counseling Given: No Alcohol Use Standard Drinks/Week Comments Never 0 (1 standard drink = 0.6 oz pur e alcohol) Comments No Sex and Gender Information Value Date Recorded Sex Assigned at Not on file Legal Sex Female 7:28 PM CDT Gender Identity Not on file Sexual Orientation Not on file Last Filed Vital Signs Vital Sign Reading Time Taken Comments Blood Pressure 127/76 11/16/2022 7:19 AM FASHION DESIGN PROFESSOR Pulse 116 11/16/2022 7:19 AM FASHION DESIGN PROFESSOR Temperature 36.6 C (97.9 F) 11/16/2022 7:19 AM FASHION DESIGN PROFESSOR Respiratory Rate 20 11/16/2022 7:19 AM FASHION DESIGN PROFESSOR Oxygen Saturation 98% 11/16/2022 7:19 AM FASHION DESIGN PROFESSOR Inhaled Oxygen Concentration - - Weight 92.6 kg (204 lb 3.2 oz) 11/16/2022 7:19 A M FASHION DESIGN PROFESSOR Height 162.6 cm (5' 4) 11/16/2022 7:19 AM FASHION DESIGN PROFESSOR Body Mass Index 35.05 11/16/2022 7:19 AM FASHION DESIGN PROFESSOR Plan of Treatment Health Maintenance Due Date Last Done Comments Cervical Cancer Screening Pap Smear (Age 21 to 29) Every 3 Years 2002 Cervical Cancer Screening 2002 Annual Physical 2005 Meningococcal B Vaccine (1 of 2 - Standard) 2018 Pneumococcal Vaccine: Pediatrics (0 to 5 Years) and At-Risk Patients (6 to 49 Years) (1 of 2 - PCV) 2021 10/16/2003, 04/24/2003, 02/11/2003, Additional history exists COVID-19 Vaccine (1 - 2023- season) 2024 DTaP, Tdap and Td Vaccines (7 - Td or Tdap) 06/26/2024 06/26/2014, 04/25/2007, 01/27/2004, Additional history exists Hepatitis C 11/16/2052 Postponed from 2020 (Patient Refused) Hepatitis B Vaccines Completed 07/23/2003, 2002, 2002 Meningococcal Vaccine Aged Out 10/17/2015, 016 No longer eligible based on patient's age to complete this topic HPV Vaccines Completed 08/22/2017, 05/10, 06/26/2014 RSV Immunizations Under 20 Months Aged Out No longer eligible based on patient's age to complete this topic Insurance Care Teams Intranet Developer Relationship Specialty [place] [address] [place] [address] PCP - General INTERNAL MEDICINE 01/03/25
[2025-05-22 15:52] VITALS: BP 133/79; PULSE 88; RESP 17; TEMP 36.2; O2SAT 100
--- NOTE | 2025-05-22 16:14 | ED_ITS ---
HPI - Extremity Injury (Upper) General Chief Complaint: Extremity Injury, Upper Stated Complaint: fall/wrist pain Time Seen by Provider: 05/22/25 16:14 Source: patient and RN notes reviewed Mode of arrival: ambulatory Limitations: no limitations History of Present Illness HPI narrative: 24-year-old female presents Express Care complaining of left wrist injury 1 week ago. She said she was at work when she accidentally tripped over a concrete curb landing on her left wrist. Patient denies hitting her head, loss of consciousness, neck pain, back pain, or any other injuries. Patient has been doing rice therapy, Tylenol ibuprofen, wearing a wrist splint is still having pain primarily to the ulnar side of her left wrist. Patient denies any significant past medical history or any previous injuries to her left arm. Patient says her wrist primarily hurts with pronation and supination and when she left certain things with her wrist. Related Data Home Medications ?Medication ?Instructions ?Recorded ?Confirmed ?Last Taken ?Type Unknown Control Implant 03/03/24 Unknown History etonogestrel 68 mg subdermal 1 implant subdermal ONCE 05/22/25 05/22/25 Unknown History implant (Nexplanon) Allergies Allergy/AdvReac Type Severity Reaction Status Date / Time No Known Allergies Allergy Unknown Verified 05/22/25 16:07 Review of Systems Review of Systems: CONSTITUTIONAL: Denies fever, chills, or sweats. EYES: Denies visual changes, redness, or discharge. ENT: Denies rhinorrhea, congestion, sore throat, or otalgia. CARDIOVASCULAR: Denies chest pain, palpitations, or edema. RESPIRATORY: Denies cough or dyspnea. GASTROINTESTINAL: Denies abdominal pain, nausea, vomiting, or diarrhea. GENITOURINARY: Denies dysuria or hematuria. SKIN: Denies rash, wound, or itching. MUSCULOSKELETAL: Denies neck pain, back pain, joint pain, or myalgia. Positive for left wrist injury. NEUROLOGIC: Denies headache, loss of consciousness, numbness, or weakness. PSYCHIATRIC: Denies anxiety or depression. All other systems reviewed are negative, except as documented in HPI. [facility] Past Medical History Medical History Obesity IUP (intrauterine ), incidental Healthy female adult Surgical History Surgical History No pertinent past surgical history Social History Social History Smoking status: Former smoker Tobacco type: cigarettes and e-cigarettes/vaping Second hand tobacco smoke exposure: Yes Smoking end date: 02/07/22 Substance use: never Lack of Transportation: No Lack of Food: Never True Current Housing: I Have Housing Concerned About Future Housing: No Difficulty Paying Gas/Electric Bills: No Difficulty Paying for Meds: No Currently Unemployed: No Education: High School Diploma/GED Difficulty w/ Childcare or Family Care: No Spiritual care concerns: No Comments At the time of my signature, I reviewed and agree with the nursing past medical, surgical, social, and family history. There is no relevant family history pertinent to the patient complaint. Exam Narrative: GENERAL: This is a well-nourished, well-developed adult, in no apparent distress. They are non ill-appearing, nontoxic appearing. HEAD: normocephalic, atraumatic. EYES: Sclera clear/white. Vision is grossly intact. Conjunctiva normal. Extraocular movement intact. EARS: External ears normal Hearing grossly intact. NOSE: External nose normal THROAT: Mucous membranes moist NECK: Neck supple CARDIOVASCULAR: Regular rate and rhythm RESPIRATORY: Respiratory rate normal, respiratory effort nonlabored, no respiratory distress NEURO: awake, alert, and oriented to person, place and time. There were no obvious focal neurologic abnormalities. EXTREMITIES: Left wrist: No obvious deformity, injury, swelling, bruising, redness. Mild tenderness during pronation and supination, otherwise nontender through wrist flexion and extension. Normal range of motion of wrist. Tenderness to palpation to the medial wrist. Capillary refill less than 3 seconds. Left radial Pulse 2 +palpable. Normal sensation. Neurovascular status intact distal injury. Radial and ulnar nerve distribution intact. Factory Superintendent strength 5/5. Patient can make a fist, stop sign, thumbs-up sign, and okay sign. No snuffbox tenderness. BACK: Nontender without deformity. Course Course Emergency Course: Portions of this record may have been created with voice recognition software Level of Care: Express Care Visit Vital Signs Vital signs: Vital Signs Temperature 97.2 F L 05/22/25 15:52 Pulse Rate 88 05/22/25 15:52 Respiratory Rate 17 05/22/25 15:52 Blood Pressure 133/79 05/22/25 15:52 Pulse Oximetry 100 05/22/25 15:52 Oxygen Delivery Room Air 05/22/25 15:52 Temperature 97.2 F L 05/22/25 15:52 Pulse Rate 88 05/22/25 15:52 Respiratory Rate 17 05/22/25 15:52 Blood Pressure 133/79 05/22/25 15:52 Pulse Oximetry 100 05/22/25 15:52 Oxygen Delivery Room Air 05/22/25 15:52 Reviewed MDM - Extremity Injury (Upper) MDM Narrative Medical decision making narrative: X-ray of left wrist is negative for any fractures or acute findings. Patient already has this wrist splint. Recommend conservative therapy. Will refer patient ortho especially pain persists for than another week. Discussed physical exam findings. Advised supportive measures and signs/symptoms to go to the ER. Pt is appropriate for outpt treatment and f/u. Differential Diagnosis Differential diagnosis: Likely sprain and strain of wrist, fracture of wrist and fracture of hand Imaging Data Radiologist's impression: ITS Impressions Wrist X-Ray 05/22/25 16:05 IMPRESSION: No acute osseous finding in the left wrist. Critical Care Time Critical Care Time Critical Care Time: No Discharge Plan Discharge Clinical Impression: Injury of wrist, left Qualifiers: Encounter type: initial encounter Qualified Code(s): S69.92XA - Unspecified injury of left wrist, hand and finger(s), initial encounter Fall Qualifiers: Encounter type: initial encounter Qualified Code(s): W19.XXXA - Unspecified fall, initial encounter Patient Disposition: Home Condition: Stable Instructions: Wrist Sprain (ED) Additional Instructions: The x-ray of your left wrist is negative for any fractures or acute findings. Rest and elevate the wrist, uses tolerated Apply ice 15-20 minute intervals several times a day Keep it wrapped with TAYLOR or use a wrist cock-up splint You may take ibuprofen 600 mg to 800 mg every 6-8 hours. Do not exceed more than 800 mg of ibuprofen per dose. Do not exceed more than 3200 mg ibuprofen in a day. You may take up to 1000 mg Tylenol every 6-8 hours. Do not exceed 1000 mg per dose, do exceed more than 4000 mg of Tylenol in a day. Follow up with your primary care provider or orthopedic needed in 1-2 weeks, especially if pain persists after 2 weeks. Patient Language: Ecuadorean Prescriptions: No Action Unknown Control Implant Nexplanon 68 mg implant 1 implant subdermal ONCE Rx Instructions: as a single dose Follow-up/Referrals: Dariel Winn MD [Physician] - PHYSICIAN,[employer] [Primary Care Provider] - Time of Disposition: 16:19
== END 2025-05-22 16:22 | disposition home or self-care (01) ==
PROVIDERS: Referring Provider Emergency Medicine
DX: S69.92XA Unspecified injury of left wrist, hand and finger(s), initial encounter (principal); W18.09XA Striking against other object with subsequent fall, initial encounter; Y99.0 Civilian activity done for income or pay; J45.909 Unspecified asthma, uncomplicated; E66.9 Obesity, unspecified; Z68.39 Body mass index [BMI] 39.0-39.9, adult; Z87.891 Personal history of nicotine dependence
CPT/HCPCS: 73110; 99213; G0463